=== PATIENT | male | born 1995 | race Caucasian/White ===

== ENCOUNTER 2023-05-19 14:26 | Emergency (ER) | payer SELFPAY ==
[~2023-05-19] VITALS: Ht 185.4 cm; Wt 77.0 kg
[2023-05-19 16:47] VITALS: BP 121/34; PULSE 94; RESP 16; O2SAT 100
[2023-05-19] MEDS ORDERED: KETOROLAC TROMETH 60MG/2ML VIAL IM ONE (17:45)
[2023-05-19] MEDS ORDERED: ACETAMINOPHEN 325 MG TAB PO ONE (18:30)
[2023-05-19 18:36] VITALS: TEMP 102
[2023-05-19] MEDS ORDERED: IBUP1TAB4 PO (18:51)
[2023-05-19 18:57] LABS: COVID19 ANTIGEN SOFIA FIA NEGATIVE (NEGATIVE)
[2023-05-19 18:58] LABS: Rapid Influenza A Negative (Negative); Rapid Influenza B Negative (Negative)
== END 2023-05-19 19:06 | disposition home or self-care (01) ==
LOC: ER 14:26
DX: B34.9 Viral infection, unspecified (principal); Z20.822 Contact with and (suspected) exposure to COVID-19
CPT/HCPCS: 36415; 87426; 87804; 96372; 99283; J1885